=== PATIENT | female | born 2000 | race Caucasian/White ===

== ENCOUNTER 2024-08-16 15:31 | Outpatient (CLI) | payer BC ==
[2024-08-16 16:04] VITALS: BP 123/75; PULSE 96; RESP 14; TEMP 97.2
--- NOTE | 2024-08-22 19:07 | P.MSEPDOC ---
Presenting Problems - Arrival Data Date of Arrival on Unit: 08/16/24 Time of Arrival on Unit: 15:31 Mode of Transport: Ambulatory - Complaint OB-Reason for Admission/Chief Complaint: Decreased Movement Medical History - Information : 2 Para: 1 Term: 1 : 0 Abortions: Spontaneous or Elective: 0 Number of Living Children: 1 - Gestational Age Gestational Age by SHASTA (wks/days): 32 Weeks and 3 Days Review of Systems - Review of Systems Constitutional: No problems Breast: No problems ENT: No problems Cardiovascular: No problems Respiratory: No problems Gastrointestinal: No problems Genitourinary: No problems Musculoskeletal: No problems Neurological: No problems Skin: No problems Vital Signs - Temperature Temperature: 97.2 F Temperature Source: Temporal Artery Scan - Pulse Right Brachial Pulse Rate: 96 Pulse Assessment Method: Pulse Oximetry - Respirations Respiratory Rate: 14 Oxygen Delivery Method: Room Air O2 Sat by Pulse Oximetry: 98 - Blood Pressure Right Arm Blood Pressure: 123/75 Blood Pressure Mean: 91 Blood Pressure Source: Automatic Cuff Medical Screen Scoring - Assessment - Baby A Baseline FHR: 145 Heart Rate - NICHD Category: Category I (Normal) NST: Reactive Physician Notification - Physician Notified Physician Notified Date: 08/16/24 Physician Notified Time: 15:41 Physician: Ronit Hurst New Order Received: Yes - Notification Comment Comment: d/c home Maternal Triage Index - Maternal Triage Index Presenting for scheduled procedure w/no complaint: No - Stat/Priority 1 Stat Priority 1: No - Urgent/Priority 2 Urgent Priority 2: No - Prompt/Priority 3 Prompt Priority 3: No - Non-Urgent/Priority 4 Non-Urgent Priority 4: Yes Criteria Met for Priority 4: decreased movement Disposition - Disposition OB Disposition: Discharge to home Discharge Date: 08/16/24 Discharge Time: 15:50 I agree with the RN Medical Screening Exam: Yes Case reviewed; plan agreed upon as documented in EMR&OBIX.: Yes Diagnosis: DECREASED MOVEMENTS, THIRD TRIMESTER, FETUS 1
== END 2024-08-16 16:05 | disposition home or self-care (01) ==
LOC: FBPOP 15:31
PROVIDERS: ATTEND Obstetrics & Gynecology Obstetrics
DX: O36.8131 Decreased fetal movements, third trimester, fetus 1 (principal); Z3A.32 32 weeks gestation of pregnancy; Z88.5 Allergy status to narcotic agent
CPT/HCPCS: 59025; 99213

== ENCOUNTER 2024-09-21 08:00 | Outpatient (CLI) | payer BC ==
[2024-09-21 09:50] VITALS: BP 130/82; PULSE 82; RESP 16; TEMP 97.4
--- NOTE | 2024-09-24 15:34 | P.MSEPDOC ---
Presenting Problems - Arrival Data Date of Arrival on Unit: 09/21/24 Time of Arrival on Unit: 08:00 Mode of Transport: Ambulatory - Complaint OB-Reason for Admission/Chief Complaint: Possible Onset of Labor Medical History - Information : 2 Para: 1 Term: 1 : 0 Abortions: Spontaneous or Elective: 0 Number of Living Children: 1 - Gestational Age Gestational Age by SHASTA (wks/days): 37 Weeks and 4 Days - History Complications: Prior Review of Systems - Review of Systems Constitutional: No problems Breast: No problems ENT: No problems Cardiovascular: No problems Respiratory: No problems Gastrointestinal: No problems Genitourinary: No problems Musculoskeletal: No problems Neurological: No problems Skin: No problems Vital Signs - Temperature Temperature: 97.4 F Temperature Source: Temporal Artery Scan - Pulse Right Brachial Pulse Rate: 82 Pulse Assessment Method: Automatic Cuff - Respirations Respiratory Rate: 16 O2 Sat by Pulse Oximetry: 97 - Blood Pressure Right Arm Blood Pressure: 130/82 Blood Pressure Mean: 98 Blood Pressure Source: Automatic Cuff Medical Screen Scoring - Cervical Exam Dilation (cm): 2 Effacement (%): 60 Station: -3 Membranes: Intact - Uterine Contractions Frequency From (mins): 3 Frequency To (mins): 6 Duration From (seconds): 70 Duration To (seconds): 90 Intensity: Mild Resting: Soft to palpation - Assessment - Baby A Baseline FHR: 130 Heart Rate - NICHD Category: Category I (Normal) NST: Reactive Physician Notification - Physician Notified Physician Notified Date: 09/21/24 Physician Notified Time: 09:24 Physician: Isis Hills New Order Received: Yes - Notification Comment Comment: Dr. Hills given update on pt. Pt vag exam of /-2. Pt reporting contractions are less intense. CAT 1 FHTs noted at this time. 30 minutes prior 2 early decelerations noted but FHTs free of any decel for 30 minutes following. Orders received to d/c pt to home. To educate pt to follow up with her primary OB out of [facility]. Maternal Triage Index - Urgent/Priority 2 Urgent Priority 2: Yes Provider Notified: Isis Hills Provider Notified Time: 08:19 Criteria Met for Priority 2: Dr. Hills in dept. Report given on pt. Pt receives care out of [facility], first delivery was P C/S for NRFHTS. FHT strip reviewed by Dr. Biswas exam of . Pt denies any complications with this . Orders recieved to recheck vag exam after 1 hour, and to d/c pt to home if no change. Disposition - Disposition OB Disposition: Discharge to home Discharge Date: 09/21/24 Discharge Time: 09:32 I agree with the RN Medical Screening Exam: Yes Physician's MSE Comment: I have neither seen nor examined the patient Case reviewed; plan agreed upon as documented in EMR&OBIX.: Yes Diagnosis: FALSE LABOR, UNSPECIFIED
== END 2024-09-21 09:32 | disposition home or self-care (01) ==
LOC: FBPOP 08:00
PROVIDERS: ATTEND Obstetrics & Gynecology
DX: O47.1 False labor at or after 37 completed weeks of gestation (principal); Z3A.37 37 weeks gestation of pregnancy; Z88.5 Allergy status to narcotic agent
CPT/HCPCS: 59025; 99213